=== PATIENT | male | born 1985 | race Caucasian/White ===

== ENCOUNTER 2016-12-13 20:17 | Emergency (ER) | payer BC ==
[~2016-12-13] VITALS: Ht 182.9 cm; Wt 81.6 kg
[2016-12-13 20:32] VITALS: BP_SYST 139
[2016-12-13 21:53] LABS: BASOPHILS # (AUTO) 0.1 K/uL (0.0-0.2); BASOPHILS % (AUTO) 0.9 % (0.0-2.0); EOSINOPHILS # (AUTO) 0.3 K/uL (0.0-0.4); EOSINOPHILS % (AUTO) 3.7 % (0.0-4.0); HEMOGLOBIN 14.8 g/dL (14.0-18.0); LYMPHOCYTES # (AUTO) 2.5 K/uL (1.0-5.5); LYMPHOCYTES % (AUTO) 30.8 % (20.5-51.5); MEAN CORPUSCULAR HEMOGLOBIN 29 pg (27-31); MEAN CORPUSCULAR HGB CONC 34 % (32-36); MEAN CORPUSCULAR VOLUME 87 fL (79.0-98.0); MONOCYTES # (AUTO) 0.5 K/uL (0.0-1.0); NEUTROPHILS # (AUTO) 4.7 K/uL (1.8-7.7); NEUTROPHILS % (AUTO) 58.6 % (40.0-70.0); PLATELET COUNT (AUTO) 276 K/uL (130-430); RED BLOOD CELL COUNT(AUTO) 5.07 MIL/uL (4.2-6.2); RED CELL DISTRIBUTION WIDTH 11.6 % (9.0-15.0); WHITE BLOOD COUNT (AUTO) 8.1 K/uL (4.8-10.8)
[2016-12-13 22:04] LABS: CALCIUM 8.8 mg/dL (8.4-11.0); CREATININE 1.25 mg/dL (0.55-1.30); POTASSIUM 3.8 mmol/L (3.5-5.1)
[2016-12-13 22:09] LABS: ALBUMIN 3.7 g/dL (3.4-4.8); TOTAL BILIRUBIN 0.3 mg/dL (0.0-1.0)
--- NOTE | 2016-12-13 22:39 | NUR ---
Patient to ER bed 05 to gown for evaluation. Side rails up. Report given to AURA Curry.
--- NOTE | 2016-12-13 22:41 | NUR ---
Patient AAOx4, ambulatory with steady gait. Patient states having pain to right groin area for approximately "several hours" prior to ER visit. pain is sharp sensation with pain scale 4/10, radiates to upper right groin area. Patient denies pain during urination, patient denies any difficulty with urinating. Patient denies any other complaints.
--- NOTE | 2016-12-13 22:51 | NUR ---
SYLVIA Smith at bedside examining patient.
[2016-12-13 23:14] LABS: BILIRUBIN,URINE NEGATIVE (NEGATIVE); BLOOD, URINE NEGATIVE (NEGATIVE); CLARITY/URINE CLEAR (CLEAR); COLOR,URINE YELLOW (YELLOW); GLUCOSE,URINE NEGATIVE (NEGATIVE); KETONES,URINE NEGATIVE (NEGATIVE); LEUKOCYTE ESTERASE ,URINE NEGATIVE (NEGATIVE); NITRITE, URINE NEGATIVE (NEGATIVE); PH,URINE 5.5 (5.0-8.0); PROTEIN URINE NEGATIVE (NEGATIVE); UROBILINOGEN,URINE 0.2 (0.2-1.0)
[2016-12-14] MEDS ORDERED: IBUPROFEN 400 MG TABLET PO ONE
--- NOTE | 2016-12-14 00:39 | NUR ---
Patient stable, no signs of distress noted. Vital signs within therapeutic range.
--- NOTE | 2016-12-14 00:40 | NUR ---
Patient reports pain 0/10 15 minutes after administration of Motrin. No adverse reactions noted. Will continue to monitor.
[2016-12-14 00:52] VITALS: BP_SYST 127
--- NOTE | 2016-12-14 00:52 | NUR ---
Patient given written and verbal discharge instructions and verbalizes understanding. ER MD Smith discussed with patient the results and treatment provided. Patient in stable condition. ID arm band removed. Patient educated on pain management and to follow up with PMD. Pain Scale 0/10. Opportunity for questions provided and answered.
== END 2016-12-14 00:52 | disposition home or self-care (01) ==
LOC: SED 20:17
DX: N50.811 Right testicular pain (principal)
CPT/HCPCS: 36415; 76870-TC; 80053; 81003; 85025; 99285

== ENCOUNTER 2018-01-22 07:44 | Outpatient (CLI) | payer BC ==
[2018-01-22] MEDS ORDERED: DIATR MEGLU/DIATRIZ SOD 30 ML SOLUTION PO ONE (08:05)
[2018-01-22] MEDS ORDERED: IOHEXOL 100 ML IV ONE (08:14)
[2018-01-22 09:05] LABS: LACTATE DEHYDROGENASE 187 U/L (85-227)
[2018-01-22 12:01] LABS: HCG,QUANTITATIVE 0 mIU/ML (0-2)
== END 2018-01-22 18:32 | disposition home or self-care (01) ==
LOC: SCT 07:44
DX: C62.90 Malignant neoplasm of unspecified testis, unspecified whether descended or undescended (principal); Z90.79 Acquired absence of other genital organ(s)
CPT/HCPCS: 36415; 71260; 74177; 82105; 83615; 84702; Q9964; Q9967